=== PATIENT | female | born 1990 | race Caucasian/White ===

== ENCOUNTER 2020-03-30 05:23 | Inpatient (IN) | payer OTHER ==
[~2020-03-30] VITALS: Ht 167.6 cm; Wt 102.0 kg
--- NOTE | 2020-03-30 12:10 | PR ---
[facility] [address] [facility] [place], [place] [address] Signed Progress Notes IP Datetime Report Generated by LUDMILA: 03/30/2020 12:10 PROGRESS NOTES: [id number] Impression: Reassuring heart rate Procedures: Artificial ROM; Scalp Electrode; Sterile Vag Exam Plan: Continue present management VITAL SIGNS: [id number] Vital Signs: Reviewed; Within Normal Limits EXAM: [id number] Dilatation: 5.0 Effacement: 75 Station: -2 Uterine Contractions: irregular MEMBRANES: [id number] Membrane Status: Intact ROM Note: AROM attempted with very small amount of fluid seen. FSE placed with no fluid seen. Comments: Comfortable after epidural. AROM attempted with min fluid seen. Will continue. Fetus A: [id number] FHR Baseline: 130 Variability: Moderate 6-25bpm Accelerations: 15X15 Decelerations: None FHR Category: Category I Presentation: Vertex Comments on Fetus A: No evidence of metabolic acidosis Fetus B: [id number] Signing Physician: Jennifer Cotton MD Copies: ~ *Electronically Signed* 03/30/20 1210 JENNIFER COTTON MD PATIENT NAME: CHRISTAL GARCÍA PROGRESS NOTE DATE OF : [birth year] PHYSICIAN: JENNIFER COTTON MD RPT #: [id number] REPORT IS CONFIDENTIAL AND NOT TO BE RELEASED WITHOUT AUTHORIZATION
--- NOTE | 2020-03-30 14:09 | PR ---
[facility] [address] [facility] [place], [place] [address] Signed Progress Notes IP Datetime Report Generated by CPIsela: 03/30/2020 14:08 PROGRESS NOTES: [id number] Impression: Normal progression of labor Procedures: Sterile Vag Exam Plan: Augmentation VITAL SIGNS: [id number] Vital Signs: Reviewed; Within Normal Limits EXAM: [id number] Dilatation: 7.0 Effacement: 75 Station: -2 Uterine Contractions: q 7 to 10 min MEMBRANES: [id number] Membrane Status: Intact ROM Note: AROM attempted with very small amount of fluid seen. FSE placed with no fluid seen. Comments: Progressing though still having very few contractions. I do think she would benefit from augmentation and she is agreeable. Fetus A: [id number] FHR Baseline: 140 Variability: Moderate 6-25bpm Accelerations: 15X15 Decelerations: None FHR Category: Category I Presentation: Vertex Comments on Fetus A: No evidence of metabolic acidosis Fetus B: [id number] Signing Physician: Jennifer Cotton MD Copies: ~ *Electronically Signed* 03/30/20 1408 JENNIFER COTTON MD PATIENT NAME: CHRISTAL GARCÍA PROGRESS NOTE DATE OF : 90 PHYSICIAN: JENNIFER COTTON MD RPT #: [id number] REPORT IS CONFIDENTIAL AND NOT TO BE RELEASED WITHOUT AUTHORIZATION
--- NOTE | 2020-03-30 15:46 | PR ---
[facility] [address] [facility] [place], [place] [address] Signed Progress Notes IP Datetime Report Generated by LUDMILA: 03/30/2020 15:45 PROGRESS NOTES: [id number] Impression: Normal progression of labor Procedures: Sterile Vag Exam Plan: Continue present management VITAL SIGNS: [id number] Vital Signs: Reviewed; Within Normal Limits EXAM: [id number] Dilatation: 9.0 Effacement: 90 Station: -1 Uterine Contractions: q 1 to 3 min MEMBRANES: [id number] Membrane Status: Intact ROM Note: AROM attempted with very small amount of fluid seen. FSE placed with no fluid seen. Comments: Progressing well and getting more comfortable after redose of epidural. She is maame quite a bit and will stop pitocin given her very frequent contractions. Will continue to closely observe status. Fetus A: [id number] FHR Baseline: 145 Variability: Minimal - Undetectable to <5bpm Accelerations: None Decelerations: Variable FHR Category: Category II Presentation: Vertex Comments on Fetus A: will require continued close observation Fetus B: [id number] Signing Physician: Jennifer Cotton MD Copies: ~ *Electronically Signed* 03/30/20 1545 JENNIFER COTTON MD PATIENT NAME: CHRISTAL GARCÍA PROGRESS NOTE DATE OF : 90 PHYSICIAN: JENNIFER COTTON MD RPT #: [id number] REPORT IS CONFIDENTIAL AND NOT TO BE RELEASED WITHOUT AUTHORIZATION
--- NOTE | 2020-03-31 08:39 | PR ---
[facility] [place] [facility] [address] [facility] [place], [place] [address] Signed PP Progress Notes Datetime Report Generated by LUDMILA: 03/31/2020 08:39 SUBJECTIVE: [id number] Pain: Within normal limits Vital Signs: [id number] Vital Signs: Reviewed; Within Normal Limits EXAM: [id number] Cardiovascular: Not Done Respiratory: Not Done Abdomen/Uterus: Abnormal Lochia: Normal Vulva/Perineum: Not Done Breasts: Not Done CVA Tenderness: Not Done Extremities: Normal Incision: Not Applicable Progress: Normal Exam Comments: Fundus firm, NT @ U-1. H/H 10.2/31, WBC 10.6, plat 161k IMPRESSION/PLAN/PROCEDURES: [id number] Impression: Normal progression Plan: Discharge Procedures: None Progress Notes: Doing well. She desires D/C. Signing Physician: Jennifer Cotton MD Copies: ~ *Electronically Signed* 03/31/20 0839 JENNIFER COTTON MD PATIENT NAME: CHRISTAL GARCÍA PROGRESS NOTE DATE OF : 90 PHYSICIAN: JENNIFER COTTON MD RPT #: [id number] REPORT IS CONFIDENTIAL AND NOT TO BE RELEASED WITHOUT AUTHORIZATION
== END 2020-03-31 17:00 | disposition home or self-care (01) | DRG 807 ==
LOC: FBC 05:23
PROVIDERS: ADMIT Obstetrics & Gynecology
PROC: 10E0XZZ Delivery of Products of Conception, External Approach (ICD-10-PCS; principal; 2020-03-30)
PROC: 0UQMXZZ Repair Vulva, External Approach (ICD-10-PCS; 2020-03-30)
PROC: 10907ZC Drainage of Amniotic Fluid, Therapeutic from Products of Conception, Via Natural or Artificial Opening (ICD-10-PCS; 2020-03-30)
PROC: 00HU33Z Insertion of Infusion Device into Spinal Canal, Percutaneous Approach (ICD-10-PCS; 2020-03-30)
PROC: 3E0R3BZ Introduction of Anesthetic Agent into Spinal Canal, Percutaneous Approach (ICD-10-PCS; 2020-03-30)
DX: O77.0 Labor and delivery complicated by meconium in amniotic fluid (principal); Z37.0 Single live birth; Z3A.40 40 weeks gestation of pregnancy; O76 Abnormality in fetal heart rate and rhythm complicating labor and delivery; O71.82 Other specified trauma to perineum and vulva; O99.214 Obesity complicating childbirth; E66.9 Obesity, unspecified; Z87.440 Personal history of urinary (tract) infections
CPT/HCPCS: 36415; 85027; A9270; J2590; J2795

== ENCOUNTER 2021-03-13 10:19 | Emergency (ER) | payer OTHER ==
[~2021-03-13] VITALS: Ht 167.6 cm; Wt 89.4 kg
[2021-03-13] MEDS ORDERED: NORGESTIMATE-E1 EACH PO (10:30)
[2021-03-13] MEDS ORDERED: ONDANSETRON ODT8 MG PO (13:09)
== END 2021-03-13 13:27 | disposition home or self-care (01) ==
LOC: ED 10:19
DX: U07.1 COVID-19 (principal)
CPT/HCPCS: 99284; A9270; C9803; U0003

== ENCOUNTER 2021-08-08 22:58 | Emergency (ER) | payer OTHER ==
[~2021-08-08] VITALS: Ht 167.6 cm; Wt 88.5 kg
[~2021-08-08 22:58] MED LIST: NORGESTIMATE-E1 EACH PO; ONDANSETRON ODT8 MG PO
== END 2021-08-09 00:46 | disposition home or self-care (01) ==
LOC: ED 22:58
DX: R10.11 Right upper quadrant pain (principal); Z79.899 Other long term (current) drug therapy
CPT/HCPCS: 76705; 80053; 83690; 84703; 85025; 96374; 96375; 99284-25; J1170; J2765; J7030

== ENCOUNTER 2021-09-12 11:33 | Day surgery (SDC) | payer OTHER ==
[~2021-09-12] VITALS: Ht 167.6 cm; Wt 84.5 kg
--- NOTE | 2021-09-12 13:48 | NUR ---
09/12/21 1348 Agata Hay 1344 PT ARRIVED TO PACU, PT TEARFUL AND IS REORIETNED TO PACU. PLAN OF CARE DISCUSSED. VSS.
--- NOTE | 2021-09-13 11:17 | PATH ---
[facility] [address] [place], [place] [address] Signed SPECIMEN(S): A DUODENAL BIOPSY SPECIMEN(S): B ANTRUM/PYLORUS BIOPSY SPECIMEN(S): C DISTAL ESOPHAGEAL BIOPSY SPECIMEN(S): D MID ESOPHAGEAL BIOPSY SPECIMEN SOURCE: A. DUODENAL BIOPSY B. ANTRUM/PYLORUS BIOPSY C. DISTAL ESOPHAGEAL BIOPSY D. MID ESOPHAGEAL BIOPSY CLINICAL HISTORY: EGD with poss. BX. Upper abdominal pain, mild antral gastritis. MICROSCOPIC DESCRIPTION: Histologic sections of all submitted blocks are examined by light microscopy. These findings, together with the gross examination, support the pathologic diagnosis. FINAL PATHOLOGIC DIAGNOSIS: A. Duodenum, biopsy: - Duodenal mucosa with no significant pathologic changes. B. Stomach, antrum/pylorus, biopsy: - Gastric antral and oxyntic mucosa with no significant pathologic changes. - Negative for Helicobacter pylori with HE stains. C. Esophagus, distal, biopsy: - Esophageal squamous mucosa with no significant pathologic changes. D. Esophagus, mid, biopsy: - Esophageal squamous mucosa with no significant pathologic changes. BRP:cml:C2NR GROSS DESCRIPTION: Four specimens are received in four containers, labeled "JH." A. The specimen, labeled "JH, duodenum biopsy," is received in formalin and consists of two rainey soft tissue fragments that measure 0.1-0.2 cm in greatest dimension. The specimen is entirely submitted in cassette (A1). B. The specimen, labeled "JH, antrum biopsy," is received in formalin and consists of two rainey soft tissue fragments that measure 0.2-0.3 cm in greatest dimension. The specimen is entirely submitted in cassette (B1). C. The specimen, labeled "JH, distal esophagus biopsy," is received in PATIENT NAME: CHRISTAL GARCÍA PATHOLOGY DATE OF : [birth year] REPORT #: [id number] PHYSICIAN: RAFIQ PATHOLOGY PCP: NO PRIMARY CARE PHYSICIAN REPORT IS CONFIDENTIAL AND NOT TO BE RELEASED WITHOUT AUTHORIZATION [facility] [address] [place], [place] [address] Signed formalin and consists of two rainey soft tissue fragments that measure 0.2-0.5 cm in greatest dimension. The specimen is entirely submitted in cassette (C1). D. The specimen, labeled "JH, middle esophagus biopsy," is received in formalin and consists of two rainey soft tissue fragments that measure 0.2-0.3 cm in greatest dimension. The specimen is entirely submitted in cassette (D1). JS (under the direct supervision of a pathologist) The Gross Description was prepared using a voice recognition system. The report was reviewed for accuracy; however, sound-alike word errors, addition and/or deletions may occur. If there is any question about this report, please contact Client Services. PERFORMING LABORATORY: The technical component was performed by [facility], [address] [place] [id number] (Document Processor: Frannie Gutierrez MD; CLIA# [id number]). [facility], [address] [address] (CLIA# [id number]). Diagnostician: Jarad Capone MD Pathologist Electronically Signed 09/13/2021 Copies: ~ PATIENT NAME: CHRISTAL GARCÍA MARY PATHOLOGY DATE OF : [birth year] REPORT #: [id number] PHYSICIAN: RAFIQ PATHOLOGY PCP: NO PRIMARY CARE PHYSICIAN REPORT IS CONFIDENTIAL AND NOT TO BE RELEASED WITHOUT AUTHORIZATION
--- NOTE | 2021-09-15 15:07 | OR ---
[facility] [address] [place], [place] [address] Signed DATE OF OPERATION: 09/12/2021 SURGEON: Agustin Cruz MD PREOPERATIVE DIAGNOSIS: Chronic recurrent epigastric and right subcostal pain, biliary workup equivocal. POSTOPERATIVE DIAGNOSIS: Mild antral gastritis. No evidence of ulceration or neoplasm. PROCEDURE: Esophagogastroduodenoscopy with biopsy. ANESTHESIA: Intravenous sedation, fentanyl 100 mcg and Versed 5 mg. INDICATION: This 31-year-old woman is a patient of Dr. Jennifer Cotton. She had complaints of right upper abdominal pain and underwent ultrasound, which showed no evidence of stones. On that basis, a CCK-HIDA test was performed which showed an ejection fraction of 73% (normal) as well as equivocal reproduction of her symptoms. Her symptoms occur not routinely after eating and sometimes randomly. She has had children in the past and had no similar symptoms during . She has not been empirically treated with PPI medication or other medications for peptic disease. In aggregate, it is probable that she does have biliary disease, but I have recommended upper endoscopy be performed anticipating possibility of peptic disease as underlying problem. The risks of upper endoscopy were reviewed with her including but not limited to bleeding, infection, and perforation. She understands and wished to proceed. FINDINGS: Upper endoscopy showed a normal esophagus and the stomach was largely normal except for mild antral gastritis. There is certainly no sign of ulcer or neoplasm. The duodenum was normal as well. CLOtest was negative 20 minutes post procedure. DESCRIPTION OF PROCEDURE: The patient was brought to the endoscopy suite and given topical lidocaine hypopharyngeal anesthesia. She was given intravenous sedation with full cardiopulmonary monitoring. A bite block was placed. The Olympus video upper endoscope was passed in the hypopharynx. She had a fair amount of gagging and inability to swallow the scope despite sedation and it was removed and additional lidocaine spray. On the Electronically Signed By: AGUSTIN CRUZ MD 09/15/21 1507 PATIENT NAME: CHRISTAL GARCÍA OPERATIVE REPORT DATE OF : [birth year] REPORT #: [id number] PHYSICIAN: AGUSTIN CRUZ MD PCP: NO PRIMARY CARE PHYSICIAN REPORT IS CONFIDENTIAL AND NOT TO BE RELEASED WITHOUT AUTHORIZATION [facility] [address] [place], [place] [address] Signed occasion, the scope was passed into the esophagus and advanced down the esophagus, noting normal mucosa throughout. The scope was passed through the stomach, which was inflated with air. Rugal folds were normal. There was mild biliary fluid, but not much. The antrum was relatively normal. There was possibly mild gastritis, but not much. Pylorus was normal. Scope was passed through into the duodenum, which was normal. Biopsies were taken of the duodenum to assess for celiac disease. The scope was withdrawn and biopsies then taken of the antrum for NATALI and pathologic testing. There may be mild antral gastritis, but it is not associated with erosions or ulcers. The scope was withdrawn and retroflexed view undertaken showing good flap valve. The scope was withdrawn to the distal esophagus and biopsies taken of that although it was normal entirely. Further withdrawal to the mid esophagus allow for biopsy there, though the mucosa also appeared normal. Careful withdrawal of the more proximal esophagus showed no sign of abnormality. Hypopharynx showed normal vocal cords. Scope was removed and the patient was taken to the recovery room in good condition. CONCLUDING DIAGNOSIS: Though she does have mild antral gastritis, it is unlikely the cause of the symptoms she has described. We will empirically treat with Prilosec 20 mg p.o. daily and anticipate scheduling of laparoscopic cholecystectomy in the near future. If the PPI medication should resolve her symptoms entirely and thoroughly, we would hold off on cholecystectomy though it remains likely that the PPI will have no effect. MD MESHA Clifton/KINJALL /[id number] cc: Jennifer Cotton MD Copies: JENNIFER COTTON MD ~ Electronically Signed By: AGUSTIN CRUZ MD 09/15/21 1507 PATIENT NAME: CHRISTAL GARCÍA OPERATIVE REPORT DATE OF : [birth year] REPORT #: [id number] PHYSICIAN: AGUSTIN CRUZ MD PCP: NO PRIMARY CARE PHYSICIAN REPORT IS CONFIDENTIAL AND NOT TO BE RELEASED WITHOUT AUTHORIZATION
== END 2021-09-12 14:21 | disposition home or self-care (01) ==
LOC: OPS 11:33 → DS 11:33 → OPS 13:00 → DS 13:00 → OPS 14:21
PROVIDERS: ATTEND Surgery
PROC: 0DB68ZZ Excision of Stomach, Via Natural or Artificial Opening Endoscopic (ICD-10-PCS; principal; 2021-09-12 13:00)
DX: K29.70 Gastritis, unspecified, without bleeding (principal); Z86.16 Personal history of COVID-19
CPT/HCPCS: 84703; 99153; G0500; J2250; J3010; J7121